=== PATIENT | female | born 1995 | race Caucasian/White ===

== ENCOUNTER 2016-06-15 07:40 | Emergency (ER) | payer OTHER ==
[~2016-06-15] VITALS: Ht 162.6 cm; Wt 80.3 kg
[2016-06-15 07:40] VITALS: BP 128/73
[~2016-06-15 07:40] MED LIST: ONDA4TAB7 PO
--- NOTE | 2016-06-15 09:10 | ED.ADGEN ---
Past History Past Medical History: No Pertinent History Past Surgical History: No Surgical History Alcohol Use: None Drug Use: None Adult General Chief Complaint Chief Complaint knee abrasion HPI HPI Patient is a 21 year old female who presents with right knee abrasion and anterior right ankle abrasion. She had an mechanical trip and fall onto her knee yesterday. She denies any her head or having loss of consciousness. There is pain when she ambulates on the knee but is able to bear weight. She is up-to- date with immunizations. She reports she is 18 weeks IUP, followed by Dr. Don. She denies any abdominal pain, cramping, vaginal bleeding or discharge. She did not hit her head or have loss of consciousness, no neck or back pain. Review of Systems Review of Systems Constitutional: Denies fever or chills [] Eyes: Denies change in visual acuity, redness, or eye pain [] HENT: Denies nasal congestion or sore throat [] Respiratory: Denies cough or shortness of breath [] Cardiovascular: denies chest pain GI: Denies abdominal pain, nausea, vomiting, bloody stools or diarrhea [] : Denies dysuria or hematuria [] Musculoskeletal: Denies back pain Integument: right knee/ankle abrasion Neurologic: Denies headache, focal weakness or sensory changes [] Allergies Allergies Allergies Coded Allergies Type Severity Reaction Last Updated Verified strawberry Allergy Unknown 04/06/16 Yes Physical Exam Physical Exam Constitutional: Well developed, well nourished, no acute distress, non-toxic appearance. [] HENT: Normocephalic, atraumatic, bilateral external ears normal, oropharynx moist, no oral exudates, nose normal. [] Eyes: PERRLA, EOMI, conjunctiva normal, no discharge. [] Neck: Normal range of motion, no tenderness, supple, no stridor. [] Cardiovascular:Heart rate 100 with regular with regular rhythm, no murmur [] Lungs & Thorax: Bilateral breath sounds clear to auscultation [] Abdomen: soft, no tenderness, no masses, no pulsatile masses. [] Skin: Warm, dry, abrasion to R knee, scabbed abrasion to anterior R ankle Back: No tenderness, no CVA tenderness. [] Extremities: RLE: FROM, no knee effusion, neg lachmans, neg ant/posterior drawer , no varus or valgus instability, ankle nontender, no deformity, pulse intact, remaining extremities FROM and nondeformed, nontender Neurologic: Alert and oriented X 3, normal motor function, normal sensory function, no focal deficits noted. [] Psychologic: Affect normal, judgement normal, mood normal. [] Current Patient Data Vital Signs Vital Signs Date Time Temp Pulse Resp B/P Pulse Ox O2 Delivery O2 Flow Rate FiO2 06/15/16 07:40 97.4 114 18 98 Room Air EKG EKG [] Radiology/Procedures Radiology/Procedures [] Course & Med Decision Making Course & Med Decision Making Pertinent Labs and Imaging studies reviewed. (See chart for details) []Wound cleaned, triple antibiotic, bandaged. Final Impression Final Impression Knee contusion abrasion[] Problems: Dragon Disclaimer Dragon Disclaimer This electronic medical record was generated, in whole or in part, using a voice recognition dictation system. HOUSTON MOCTEZUMA MD Jun 15, 2016 09:10
== END 2016-06-15 08:51 | disposition home or self-care (01) ==
LOC: ER 07:40
DX: O9A.212 Injury, poisoning and certain other consequences of external causes complicating pregnancy, second trimester (principal); S80.01XA Contusion of right knee, initial encounter; S90.511A Abrasion, right ankle, initial encounter; Z91.018 Allergy to other foods; W01.0XXA Fall on same level from slipping, tripping and stumbling without subsequent striking against object, initial encounter; Y93.89 Activity, other specified; Y99.8 Other external cause status; Y92.89 Other specified places as the place of occurrence of the external cause
CPT/HCPCS: 99283

== ENCOUNTER 2016-07-25 12:01 | Emergency (ER) | payer OTHER ==
[~2016-07-25] VITALS: Ht 162.6 cm; Wt 81.6 kg
[2016-07-25] MEDS ORDERED: ALBUTEROL SULFATE 2.5 MG/3 ML NEBU. NEB ONE (12:30)
[2016-07-25 12:38] LABS: BASO % 0 % (0-3); EOS # 0.1 x10^3/uL (0.0-0.7); EOS % 1 % (0-3); HEMATOCRIT 33.2 % (36.0-47.0); HEMOGLOBIN 11.2 g/dL (12.0-15.5); LYMPH # 1.2 x10^3/uL (1.0-4.8); LYMPH % 12 % (24-48); MEAN CORPUSCULAR HEMOGLOBIN 26 pg (25-35); MEAN CORPUSCULAR HGB CONC 34 g/dL (31-37); MEAN CORPUSCULAR VOLUME 78 fL (79-100); MONO # 0.7 x10^3/uL (0.0-1.1); MONO % 7 % (0-9); NEUT # 7.7 x10^3uL (1.8-7.7); NEUT % 79 % (31-73); PLATELET COUNT 242 x10^3/uL (140-400); RED BLOOD COUNT 4.27 x10^6/uL (3.50-5.40); RED CELL DISTRIBUTION WIDTH 14.6 % (11.5-14.5); WHITE BLOOD COUNT 9.8 x10^3/uL (4.0-11.0)
[2016-07-25] MEDS ORDERED: IV NORMAL SALINE 1,000ML 1,000 ML IV ONE (12:45)
[2016-07-25 12:46] LABS: CALCIUM 8.3 mg/dL (8.5-10.1); CREATININE 0.7 mg/dL (0.6-1.0); GFR 106.7; POTASSIUM 3.4 mmol/L (3.5-5.1)
--- NOTE | 2016-07-25 12:50 | EKG ---
[address] [address] Test Date: 2016-07-25 Test Time: 12:23:39 Pat Name: JIGNA PALOMINO Department: Room: Gender: F Deployment Technician: IVANIA : 1995 Requested By: RAZA JONES Order Number: [id number] Reading MD: Thee Khan Measurements Intervals [place] Rate: 111 P: 31 RI: 122 QRS: 17 QRSD: 82 T: 6 QT: 336 QTc: 460 Interpretive Statements SINUS TACHYCARDIA Electronically Signed On 07-30-2016 14:00:40 CDT by Thee Khan
--- NOTE | 2016-07-25 13:28 | RAD ---
EXAM: CHEST 1 VIEW History: Shortness of breath COMPARISON: None available. TECHNIQUE: Single portable radiograph of the chest FINDINGS: The cardiac silhouette is unremarkable. The lungs are clear bilaterally. The costophrenic sulci are clear and well demarcated. IMPRESSION: No radiographic evidence of an acute cardiopulmonary process.
[2016-07-25] MEDS ORDERED: IOHEXOL 300 MG/ML 75 ML VIAL. IV ONE ×2 (13:45→14:15)
--- NOTE | 2016-07-25 14:40 | ED.ADGEN ---
Past History Past Medical History: Asthma, Other Past Surgical History: No Surgical History Alcohol Use: None Drug Use: None Adult General Chief Complaint Chief Complaint Shortness of air HPI HPI Patient is a 21-year-old, 25 week gestation female who presents with shortness of air for the past 3 days. Patient reports was hoarseness, cough, sore throat, congestion and occasional wheezing. She is low-grade fever of 100 prior to ED arrival. Patient reports chest tightness with deep breathing. History of asthma. Patient does not currently have an inhaler at home. Denies leg pain swelling, history of DVT no complications with . Patient's currently taking a vitamin but is otherwise unmedicated. Review of Systems Review of Systems Review symptoms as per history of present illness. All other review symptoms are negative. Current Medications Current Medications Current Medications Medications (Trade) Dose Ordered Sig/Gama Start Time Stop Time Status Last Admin Dose Admin Albuterol Sulfate (Ventolin) 2.5 mg 1X ONCE 07/25/16 12:30 07/25/16 12:31 DC 07/25/16 12:31 2.5 MG Iohexol (Omnipaque 300 Mg/ml) 75 ml 1X ONCE 07/25/16 14:15 07/25/16 14:16 DC Sodium Chloride 1,000 ml @ 1,000 mls/hr 1X ONCE 07/25/16 12:45 07/25/16 13:45 DC 07/25/16 12:30 1,000 MLS/HR Allergies Allergies Allergies Coded Allergies Type Severity Reaction Last Updated Verified strawberry Allergy Unknown 07/25/16 Yes Physical Exam Physical Exam Constitutional: Well developed, well nourished, no acute distress, non-toxic appearance. HENT: Normocephalic, atraumatic, bilateral external ears normal, oropharynx moist, no oral exudates, nose normal. Voice hoarseness, no dysphonia, drooling, or trismus. Eyes: PERRLA, EOMI. Neck: Normal range of motion. Cardiovascular: Tachycardic, regular rhythm. Negative Homans signs. Lungs & Thorax: Patient's nonlabored, mildly diminished, no rales rhonchi or wheezes. Abdomen: Bowel sounds normal, soft, abdomen above the umbilicus. Skin: Warm, dry, no erythema, no rash. Back: No tenderness, no CVA tenderness. [ Extremities: No tenderness, no cyanosis, no clubbing, ROM intact, no edema. Neurologic: Alert and oriented X 3, normal motor function, normal sensory function, no focal deficits noted. Psychologic: Affect normal, judgement normal, mood normal. Current Patient Data Vital Signs Vital Signs Date Time Temp Pulse Resp B/P (MAP) Pulse Ox O2 Delivery O2 Flow Rate FiO2 07/25/16 13:58 109 18 99 Room Air 07/25/16 12:14 98.1 Lab Results Laboratory Tests Test 07/25/16 12:25 White Blood Count 9.8 x10^3/uL (4.0-11.0) Red Blood Count 4.27 x10^6/uL (3.50-5.40) Hemoglobin 11.2 g/dL (12.0-15.5) L Hematocrit 33.2 % (36.0-47.0) L Mean Corpuscular Volume 78 fL (79-100) L Mean Corpuscular Hemoglobin 26 pg (25-35) Mean Corpuscular Hemoglobin Concent 34 g/dL (31-37) Red Cell Distribution Width 14.6 % (11.5-14.5) H Platelet Count 242 x10^3/uL (140-400) Neutrophils (%) (Auto) 79 % (31-73) H Lymphocytes (%) (Auto) 12 % (24-48) L Monocytes (%) (Auto) 7 % (0-9) Eosinophils (%) (Auto) 1 % (0-3) Basophils (%) (Auto) 0 % (0-3) Neutrophils # (Auto) 7.7 x10^3uL (1.8-7.7) Lymphocytes # (Auto) 1.2 x10^3/uL (1.0-4.8) Monocytes # (Auto) 0.7 x10^3/uL (0.0-1.1) Eosinophils # (Auto) 0.1 x10^3/uL (0.0-0.7) Basophils # (Auto) 0.0 x10^3/uL (0.0-0.2) D-Dimer (Oneyda) 0.45 mg/L (0.00-0.50) Sodium Level 138 mmol/L (136-145) Potassium Level 3.4 mmol/L (3.5-5.1) L Chloride Level 104 mmol/L (98-107) Carbon Dioxide Level 23 mmol/L (21-32) Anion Gap 11 (6-14) Blood Urea Nitrogen 3 mg/dL (7-20) L Creatinine 0.7 mg/dL (0.6-1.0) Estimated GFR (Cockcroft-Gault) 106.7 Glucose Level 90 mg/dL (70-99) Calcium Level 8.3 mg/dL (8.5-10.1) L EKG EKG [] Radiology/Procedures Radiology/Procedures [Chest x-ray: No acute cardiopulmonary disease per radiology report CTA chest:] Course & Med Decision Making Course & Med Decision Making Pertinent Labs and Imaging studies reviewed. (See chart for details) [Patient disproportionately tachycardic without treatment on ED arrival. Heart rate is 120s 130s. O2 sats 96%. Patient initially given albuterol with some improvement of air movement. Small PE. Chest x-ray order negative. Lab work nondiagnostic. CTA reviewed. ] Final Impression Final Impression [] Problems: Dragon Disclaimer Dragon Disclaimer This electronic medical record was generated, in whole or in part, using a voice recognition dictation system. RAZA JONES DO July 25, 2016 14:39
--- NOTE | 2016-07-25 14:42 | RAD ---
CTA of the chest with contrast, 07/25/2016: History: Asthma, shortness of breath Multidetector CT imaging was performed following an IV bolus injection of iodinated contrast material. Multiplanar reconstructions were produced including coronal MIP images. No filling defects are seen in the main, lobar or segmental pulmonary arteries to suggest pulmonary emboli. The degree of opacification of some of the segmental and smaller pulmonary arteries is suboptimal in this large patient. No mediastinal or hilar adenopathy is seen. There are mild groundglass opacities in the dependent aspects of both lungs, most likely representing atelectasis and/or dependent edema. Within these areas there are a number of small lucencies suggesting air trapping in this patient with the given history of asthma. There is no evidence of pleural fluid. IMPRESSION: 1. No CT evidence of central pulmonary emboli, although the smaller pulmonary arteries are suboptimally visualized due to technical factors. 2. Mild dependent atelectasis in both lungs. PQRS Compliance Statement: One or more of the following individualized dose reduction techniques were utilized for this examination: 1. Automated exposure control 2. Adjustment of the mA and/or kV according to patient size 3. Use of iterative reconstruction technique
[2016-07-25 14:47] VITALS: BP 100/53
== END 2016-07-25 14:53 | disposition home or self-care (01) ==
LOC: ER 12:01
DX: R06.02 Shortness of breath (principal); R05 Cough; R49.0 Dysphonia; R09.81 Nasal congestion; J02.9 Acute pharyngitis, unspecified; R50.9 Fever, unspecified; J45.909 Unspecified asthma, uncomplicated; Z91.018 Allergy to other foods
CPT/HCPCS: 36415; 71010; 71275; 80048; 85027; 85379; 93005; 94640; 96360; 96361; 99285; J7613; Q9967; J7030